=== PATIENT | male | born 1990 | race Caucasian/White ===

== ENCOUNTER 2017-10-25 06:09 | Emergency (ER) | payer OTHER ==
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
[2017-10-25 08:20] VITALS: RESP 18; TEMP 98.9
[2017-10-25 12:13] LABS: URINE BILIRUBIN NEGATIVE (NEGATIVE); URINE BLOOD TRACE-INTACT (NEGATIVE); URINE GLUCOSE (UA) NEGATIVE (NEGATIVE); URINE LEUKOCYTE ESTERASE NEGATIVE Leu/uL (NEGATIVE); URINE NITRATE NEGATIVE (NEGATIVE); URINE PROTEIN NEGATIVE mg/dL (<30 mg/dL); URINE UROBILINOGEN 0.2 E.U./dL (<1 E.U./dL)
[2017-10-25 12:23] LABS: URINE APPEARANCE CLEAR (CLEAR); URINE COLOR YELLOW (YELLOW)
[2017-10-25 12:34] LABS: URINE WBC 0 - 2 /hpf (0-6)
[2017-10-25 12:35] LABS: URINE BACTERIA SMALL (NEG)
[2017-10-25 12:42] VITALS: BP 131/71; PULSE 49; O2SAT 100
== END 2017-10-25 12:49 | disposition home or self-care (01) ==
LOC: ED 06:09 → MERGE 06:09 → ED 12:49
DX: S70.02XA Contusion of left hip, initial encounter (principal); S39.012A Strain of muscle, fascia and tendon of lower back, initial encounter; V03.90XA Pedestrian on foot injured in collision with car, pick-up truck or van, unspecified whether traffic or nontraffic accident, initial encounter
CPT/HCPCS: 72131; 73502; 81001; 96372; 99283; J1885